=== PATIENT | male | born 1945 | race Caucasian/White ===

== ENCOUNTER 2018-12-15 07:53 | Observation (INO) ==
[2018-12-15] MEDS ORDERED: ONDANSETRON 4 MG/2 ML VIAL IV STA (08:24)
[2018-12-15] MEDS ORDERED: KETOROLAC 30 MG/1 ML VIAL IV STA (08:24)
[2018-12-15] MEDS ORDERED: HYDROmorphone 2 MG/1 ML VIAL IV STA (08:24)
[2018-12-15 08:46] LABS: Apearance,Urine CLEAR (Clear); Bilirubin,Urine Negative (Negative); Blood, Urine Moderate mg/dL (Negative); Glucose,Urine (UA) Negative (Negative); Ketones,Urine Negative (Negative); Mucus,Urine Occasional /LPF (Occasional); Nitrite,Urine Negative (Negative); Protein,Urine Negative; RBC,Urine 4 /HPF (0-4); Urine Color Yellow (Yellow); Urine Urobilinogen < 2.0 EU/DL (0.2-1.0); WBC,Urine 1 /HPF (0-6)
[2018-12-15] MEDS ORDERED: SODIUM CHLORIDE 0.9% 1,000 ML IV STA (09:00)
[2018-12-15 09:14] LABS: Basophils % 0.3 % (0.0-0.8); Eosinophils # 0.1 10*3/uL (0.0-0.87); Hematocrit 43.6 VOL% (42.0-52.0); Immature Granulocytes % 0.4 %; Immature Granulocytes Absolute 0.05 #; Lymphocytes # 1.5 10*3/uL (1.4-4.0); Lymphocytes % 12.5 % (21.2-54.2); Mean Corpuscular HGB Conc 34.4 GM/DL (32-36); Mean Corpuscular Volume 92.2 FL (87-102); Mean Platelet Volume 11.6 FL (9.6-12.0); Monocytes % 8.8 % (1.7-12.7); Platelet Count 190 T/CUMM (130-400); Red Blood Count 4.73 MC/CUMM (3.8-5.5); White Blood Count 11.7 T/CUMM (4-12)
[2018-12-15 09:21] LABS: Calcium 8.8 MG/DL (8.5-10.1); Osmolality,Calculated 285.5 MOS/KG (273-304)
[2018-12-15 09:30] LABS: INR 0.9; PT Patient Result 9.8 SECS (9.6-12.2)
[2018-12-15] MEDS ORDERED: cefTRIAXone 1,000 MG in SYRINGE 1 EACH IV ONE (12:07)
[2018-12-15] MEDS ORDERED: FAMOTIDINE 20 MG TABLET PO ONE (12:41)
[2018-12-15] MEDS ORDERED: METOPROLOL SUCCINATE XL 25 MG TABLET PO ONE (12:52)
[2018-12-15] MEDS ORDERED: FAMOTIDINE 20 MG TABLET ONE (12:54)
[2018-12-15] MEDS ORDERED: METOPROLOL TARTRATE 25 MG TABLET PO ONE (12:57)
[2018-12-15] MEDS ORDERED: cefTRIAXone 1,000 MG VIAL ONE (12:59)
[2018-12-15] MEDS ORDERED: LACTATED RINGERS 1,000 ML IV SCH (13:00)
[2018-12-15] MEDS ORDERED: SEVOFLURANE 1 UNIT/15 MINUTE INH ONE (14:00)
[2018-12-15] MEDS ORDERED: LIDOCAINE 2% 5 ML VIAL ONE (14:00)
[2018-12-15] MEDS ORDERED: PROPOFOL 200 MG/20 ML VIAL IV ONE (14:00)
[2018-12-15] MEDS ORDERED: ONDANSETRON 4 MG/2 ML VIAL ONE (14:01)
[2018-12-15] MEDS ORDERED: fentaNYL 100 MCG/2 ML VIAL ONE (14:01)
[2018-12-15] MEDS ORDERED: DEXAMETHASONE 4 MG/1 ML VIAL ONE (14:01)
[2018-12-15] MEDS ORDERED: MIDAZOLAM 2 MG/2 ML VIAL ONE (14:01)
[2018-12-15] MEDS ORDERED: HYDROmorphone 2 MG/1 ML VIAL IV PRN (14:57)
[2018-12-15] MEDS ORDERED: ACETAMINOPHEN 325 MG TABLET PO PRN (14:57)
[2018-12-15] MEDS ORDERED: PROMETHAZINE 25 MG/1 ML VIAL IM PRN (14:57)
[2018-12-15] MEDS ORDERED: ONDANSETRON 4 MG/2 ML VIAL IV PRN (14:57)
[2018-12-15] MEDS: SODIUM CHLORIDE 0.9% 1,000 ML IV SCH (15:30)
[2018-12-15] MEDS ORDERED: TAMSULOSIN 0.4 MG CAPSULE PO SCH (21:00)
[2018-12-15] MEDS ORDERED: MELATONIN 3 MG TABLET PO SCH (21:00)
[2018-12-16] MEDS: SODIUM CHLORIDE 0.9% 1,000 ML IV SCH
[2018-12-16 05:24] LABS: Basophils % 0.4 % (0.0-0.8); Eosinophils # 0.2 10*3/uL (0.0-0.87); Eosinophils % 2.1 % (0.00-10.9); Hematocrit 38.3 VOL% (42.0-52.0); Immature Granulocytes % 0.6 %; Immature Granulocytes Absolute 0.05 #; Lymphocytes # 1.3 10*3/uL (1.4-4.0); Lymphocytes % 16.1 % (21.2-54.2); Mean Corpuscular HGB Conc 32.6 GM/DL (32-36); Mean Corpuscular Volume 94.3 FL (87-102); Mean Platelet Volume 11.8 FL (9.6-12.0); Monocytes % 8.5 % (1.7-12.7); Neutrophils % 72.3 % (38.7-73.9); Platelet Count 160 T/CUMM (130-400); Red Blood Count 4.06 MC/CUMM (3.8-5.5); Red Cell Distribution Width 13.2 % (9.3-17.3); White Blood Count 8.3 T/CUMM (4-12)
[2018-12-16 05:35] LABS: Hemoglobin 12.5 GM/DL (14.0-18.0)
[2018-12-16 05:46] LABS: Calcium 7.9 MG/DL (8.5-10.1); Osmolality,Calculated 293.7 MOS/KG (273-304)
[2018-12-16] MEDS ORDERED: cefTRIAXone 1,000 MG in SYRINGE 1 EACH IV SCH (09:00)
[2018-12-16] MEDS ORDERED: METOPROLOL SUCCINATE XL 25 MG TABLET PO SCH (09:00)
[2018-12-16] MEDS ORDERED: amLODIPine 5 MG TABLET PO SCH (09:00)
[2018-12-16] MEDS ORDERED: CHLORTHALIDONE 25 MG TABLET PO SCH (09:00)
[2018-12-16 11:19] VITALS: BP 141/88
[2018-12-18 13:51] LABS: Stone Analysis Interpretation SEE COMMENTS
== END 2018-12-16 11:15 | disposition home or self-care (01) ==
LOC: N.ED 07:53 → N.5E 07:53 → UNDODEPER 12:03 → N.SDSINP 12:10 → N.5E 12:10 → N.SDSINP 12:33 → N.SDS 12:33 → N.SDSINP 12:34 → N.5E 15:33
PROVIDERS: ADMIT Surgery; ATTEND Surgery